=== PATIENT | female | born 2000 | race African-American/Black ===

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

== ENCOUNTER 2020-03-12 22:52 | Emergency (ER) | payer MEDICAID ==
[~2020-03-12] VITALS: Ht 170.2 cm; Wt 100.0 kg
[~2020-03-12 22:52] MED LIST changes: +HYDROCODON-ACE1 EAC7 PO
[2020-03-12 22:58] VITALS: BP 125/72; Ht 170.2 cm; Wt 100.0 kg
[2020-03-13] MEDS ORDERED: NAPROSYN500 MG PO (00:04)
== END 2020-03-13 00:08 | disposition home or self-care (01) ==
LOC: D.ER 22:52
DX: S60.021A Contusion of right index finger without damage to nail, initial encounter (principal); S60.031A Contusion of right middle finger without damage to nail, initial encounter; X58.XXXA Exposure to other specified factors, initial encounter

== ENCOUNTER 2020-03-20 14:32 | Emergency (ER) | payer MEDICAID ==
[~2020-03-20] VITALS: Ht 170.2 cm; Wt 100.0 kg
[2020-03-20 14:47] VITALS: BP 114/67; Ht 170.2 cm; Wt 100.0 kg
[2020-03-20 15:32] LABS: BASOPHILS 0.2 % (0-2); EOSINOPHILS 1.2 % (0-7); HEMATOCRIT 40.6 % (36.0-48.0); HEMOGLOBIN 13.5 g/dL (12-16); IMMATURE GRANULOCYTES 0.2 % (0-5); LYMPHOCYTES 33.7 % (15-50); MCH 30.1 pg (26.0-34.0); MCHC 33.3 g/dL (31.0-37.0); MCV 90.4 fL (80.0-100.0); MONOCYTES 5.3 % (2-11); NEUTROPHILS 59.4 % (40-80); PLATELET COUNT 306 10x3/uL (130-400); RBC 4.49 10x6/uL (4.00-5.40); RDW 13.2 % (11.5-14.5); WBC 10.8 10x3/uL (4.8-10.8)
[2020-03-20 15:50] LABS: CALC OSMOLALITY 277 mosm/kg (275-300); CALCIUM 8.6 mg/dL (8.5-10.1); CARBON DIOXIDE 26.7 mmol/L (21.0-32.0); CHLORIDE - SERUM 106 mmol/L (98-107); CREATININE - SERUM 0.8 mg/dL (0.6-1.3); GLUCOSE 100 mg/dL (74-106); POTASSIUM - SERUM 3.8 mmol/L (3.5-5.1); SODIUM 140 mmol/L (136-145); UREA NITROGEN 10 mg/dL (7-18); eGFR NON AFRICAN AMERICAN > 90 mL/min (90-120)
[2020-03-20 15:57] LABS: ALBUMIN 3.5 g/dL (3.4-5.0); ALKALINE PHOSPHATASE 53 U/L (30-120); ALT (SGPT) 36 U/L (10-68)
== END 2020-03-20 16:58 | disposition left against medical advice (07) ==
LOC: D.ER 14:32
PROVIDERS: Emergency Medicine
DX: N93.9 Abnormal uterine and vaginal bleeding, unspecified (principal)